=== PATIENT | male | born 1950 | race Caucasian/White ===

== ENCOUNTER 2018-11-24 23:35 | Inpatient (IN) | payer MEDICARE, OTHER ==
[2018-11-25 00:08] LABS: ADD MAN DIFF? NO
[2018-11-25 00:09] LABS: ABNORMAL IP MESSAGE 1; BASOPHIL # 0.1 10^3/ul (0.0-0.1); BASOPHILS % 0.4 % (0.0-2.0); HEMATOCRIT 60.1 % (42.0-52.0); LYMPHOCYTES # 0.9 10^3/ul (0.8-2.9); MEAN CORPUSCULAR HEMOGLOBIN 29.2 pg (29.0-33.0); MEAN CORPUSCULAR VOLUME 97.6 fl (82.0-101.0); MEAN PLATELET VOLUME 12.3 fl (7.4-10.4); MONOCYTE # 1.4 10^3/ul (0.3-0.9); MONOCYTES % 5.9 % (0.0-11.0); NEUTROPHIL # 20.8 10^3/ul (1.6-7.5); NEUTROPHILS % 89.1 % (39.0-77.0); PLATELET COUNT 394 10^3/UL (140-415); POSITIVE DIFF @See below; RED BLOOD COUNT 6.16 10^6/ul (4.70-6.10); RED CELL DISTRIBUTION WIDTH 11.9 % (11.5-14.5)
[2018-11-25 00:09] LABS: WHITE BLOOD COUNT 23.3 10^3/ul (4.8-10.8)
[2018-11-25] MEDS: CEFEPIME 2GM/50 ML (PMX) 50 ML IVPB (00:15)
[2018-11-25] MEDS: SODIUM CHLORIDE 0.9% 1L BAG IV* (00:15)
[2018-11-25] MEDS: SUCCINYLCHOLINE CHLORIDE 100 MG/5 ML SYG IV (00:25)
[2018-11-25 00:30] LABS: INR 1.56; PROTIME 18.8 Sec (11.9-14.9); PT RATIO 1.5
[2018-11-25 00:31] LABS: PARTIAL THROMBOPLASTIN TIME 45.4 Sec (23.0-35.0)
[2018-11-25] MEDS: NORepinephrine 8MG/250 ML (PMX 250 ML IV (00:39)
[2018-11-25] MEDS: VANCOMYCIN 1 GM (PMX) 250 ML IVPB (00:45)
[2018-11-25 01:26] LABS: ANION GAP 25 (5-13); BLOOD UREA NITROGEN 109 mg/dl (7-20); CALCIUM 8.8 mg/dl (8.4-10.2); CARBON DIOXIDE 16 mmol/L (21-31); CHLORIDE 116 mmol/L (97-110); CREATININE 5.44 mg/dl (0.61-1.24); Estimated GFR 11 mL/min (>60); POTASSIUM 5.6 mmol/L (3.5-5.1); SODIUM 157 mmol/L (135-144)
[2018-11-25 01:35] LABS: GLUCOSE 717 mg/dl (70-220)
[2018-11-25 01:46] LABS: ADD UMIC YES; UR ASCORBIC ACID 20 mg/dL (NEGATIVE); UR BILIRUBIN (Dip) NEGATIVE (NEGATIVE); UR BLOOD (Dip) 2+ mg/dL (NEGATIVE); UR CLARITY SLIGHTLY CLOUDY (CLEAR); UR COLOR YELLOW (YELLOW); UR GLUCOSE (Dip) 3+ mg/dL (NEGATIVE); UR KETONES (Dip) NEGATIVE (NEGATIVE); UR LEUKOCYTE ESTERASE (Dip) NEGATIVE Leu/ul (NEGATIVE); UR NITRITE (Dip) NEGATIVE (NEGATIVE); UR RBC 45 /HPF (0-5); UR SPECIFIC GRAVITY (Dip) 1.016 (1.003-1.030); UR TOTAL PROTEIN (Dip) 2+ mg/dl (NEGATIVE); UR UROBILINOGEN (Dip) NEGATIVE (NEGATIVE); UR WBC 2 /HPF (0-5)
[2018-11-25 02:10] LABS: AADO2 Arterial 218.6 mmHg (7.0-24.0); Allen Test ACCEPTAB; Arterial Base Excess -9.8 mmol/L (-3.0-3); Arterial Blood Gas Oxygen Sat 96.7 mmHG (95.0-98.0); Arterial COHb 0 % (0.0-3.0); Arterial Fraction of Oxyhgb 96.3 % (93.0-99.0); Arterial HCO3 15.5 mmol/L (22.0-26.0); Arterial MetHb 0.4 % (0.0-1.5); Arterial pCO2 33.1 mmhg (35-45); MODE VENT - AC; Site Right Radial
[2018-11-25] MEDS ORDERED: ONDANSETRON 4 MG INJ IV (02:30)
[2018-11-25] MEDS: NA POLYST SULFON 15 GM/60 ML BTL PO (02:30)
[2018-11-25] MEDS ORDERED: SOD CHLORIDE 0.9% 1,000 ML IV (02:30)
[2018-11-25] MEDS ORDERED: VANCOMYCIN IV PER PHARMACY XX (02:30)
[2018-11-25] MEDS ORDERED: morphine 2 MG INJ IV (02:30)
[2018-11-25] MEDS ORDERED: PIPER-TAZO 3.375 GM IV (PMX) 100 ML IVPB (02:30)
[2018-11-25] MEDS ORDERED: ACCU-CHEK XX (02:30)
[2018-11-25] MEDS ORDERED: ACETAMINOPHEN 325 MG TAB PO (02:30)
[2018-11-25] MEDS ORDERED: DEXTROSE 50% 50 ML SYRINGE IV ×4 (02:30→03:00)
[2018-11-25] MEDS: ACCU-CHEK XX ×21 (03:00→23:10)
[2018-11-25] MEDS: SOD CHLORIDE 0.9% 1,000 ML IV ×2 (03:14→07:48)
[2018-11-25 04:13] LABS: UR KETONES (Dip) NEGATIVE (NEGATIVE)
[2018-11-25] MEDS: LEVETIRACETAM 1000 MG (PMX) 100 ML IVPB ×2 (04:13→21:55)
[2018-11-25] MEDS: PIPER-TAZO 2.25 GM (PMX) 50 ML IVPB ×3 (04:14→21:55)
[2018-11-25 04:22] LABS: CREATININE,URINE RANDOM 93.65 mg/dl (20-370)
[2018-11-25 04:22] LABS: SODIUM,URINE RANDOM 25 mmol/L (30-90)
[2018-11-25] MEDS ORDERED: VANCOMYCIN HCL 1.75 GM in SOD CHLORIDE 0.9% 500 ML IVPB (04:30)
[2018-11-25 05:17] LABS: HEMATOCRIT 46.1 % (42.0-52.0); HEMOGLOBIN 13.9 g/dl (14.0-18.0); MEAN CORPUSCULAR HEMOGLOBIN 30.1 pg (29.0-33.0); MEAN CORPUSCULAR HGB CONC 30.2 g/dl (32.0-37.0); MEAN CORPUSCULAR VOLUME 99.8 fl (82.0-101.0); MEAN PLATELET VOLUME 12.5 fl (7.4-10.4); PLATELET COUNT 255 10^3/UL (140-415); POSITIVE DIFF @See below; RED BLOOD COUNT 4.62 10^6/ul (4.70-6.10); RED CELL DISTRIBUTION WIDTH 12.1 % (11.5-14.5)
[2018-11-25 05:17] LABS: WHITE BLOOD COUNT 20.3 10^3/ul (4.8-10.8)
[2018-11-25 05:25] LABS: ADD MAN DIFF? YES
[2018-11-25 05:40] LABS: ANION GAP 11 (5-13); BLOOD UREA NITROGEN 102 mg/dl (7-20); CALCIUM 7.6 mg/dl (8.4-10.2); CARBON DIOXIDE 18 mmol/L (21-31); CHLORIDE 125 mmol/L (97-110); CREATININE 4.43 mg/dl (0.61-1.24); Estimated GFR 13 mL/min (>60); POTASSIUM 5.2 mmol/L (3.5-5.1); SODIUM 154 mmol/L (135-144)
[2018-11-25 05:43] LABS: LACTIC ACID 3.8 mmol/L (0.5-2.0)
[2018-11-25 05:48] LABS: TROPONIN-I 0.476 ng/ml (0.000-0.120)
[2018-11-25] MEDS: VANCOMYCIN 750 MG (PMX) 250 ML IVPB (05:50)
[2018-11-25] MEDS: PANTOPRAZOLE 40 MG INJ IV (05:52)
[2018-11-25] MEDS: SODIUM POLYSTYRENE 15 GM KIT (POWDER + SORBITOL) PO (05:52)
[2018-11-25 06:05] LABS: GLUCOSE 654 mg/dl (70-220)
[2018-11-25] MEDS: INSULIN HUMAN REGULAR 100 UNIT in SOD CHLORIDE 0.9% 99 ML IV ×3 (06:09→18:10)
[2018-11-25 08:02] LABS: BAND NEUTROPHILS #M 5.4 10^3/ul (0.0-0.6); BAND NEUTROPHILS % (M) 27 % (0-4); LYMPHOCYTES #M 2.4 10^3/ul (0.8-2.9); LYMPHOCYTES % (M) 12 % (15-51); METAMYELOCYTES #M 0.4 10^3/ul (0.0-0.0); METAMYELOCYTES %M 2 % (0-0); MONOCYTE #M 1.6 10^3/ul (0.3-0.9); MONOCYTES % (M) 8 % (0-11); MYELOCYTES #M 0.2 10^3/ul (0.0-0.0); MYELOCYTES % (M) 1 % (0-0); PLATELET ESTIMATE NORMAL; POIKILOCYTOSIS 1+ (0-0); SEG NEUT #M 11.2 10^3/ul (1.6-7.5); SEGMENTED NEUTROPHILS (M) % 50 % (39-77); SMUDGE%M 11 % (0-0)
[2018-11-25] MEDS: SOD CHLORIDE 0.45% 1,000 ML IV (10:25)
[2018-11-25 10:57] LABS: ANION GAP 16 (5-13); BLOOD UREA NITROGEN 97 mg/dl (7-20); CARBON DIOXIDE 17 mmol/L (21-31); CHLORIDE 130 mmol/L (97-110); CREATININE 4.05 mg/dl (0.61-1.24); Estimated GFR 15 mL/min (>60); MAGNESIUM 2.9 mg/dl (1.7-2.5); POTASSIUM 4.1 mmol/L (3.5-5.1)
[2018-11-25 11:00] LABS: SODIUM 163 mmol/L (135-144)
[2018-11-25 11:01] LABS: GLUCOSE 542 mg/dl (70-220)
[2018-11-25 11:03] LABS: CREATINE KINASE 2227 IU/L (23-200)
[2018-11-25 11:09] LABS: CK INDEX 0.2
[2018-11-25 11:21] LABS: CK-MB 4.77 ng/ml (0.0-2.4)
[2018-11-25 11:29] LABS: LACTIC ACID 4.6 mmol/L (0.5-2.0)
[2018-11-25 12:05] LABS: HEMOGLOBIN A1C 9.8 % (0-5.9)
[2018-11-25] MEDS: HEPARIN 5,000 UNIT/1 ML VIAL SC (13:08)
[2018-11-25] MEDS: SODIUM BICARBONATE (IV ADD) 50 MEQ in SOD CHLORIDE 0.45% 1,000 ML IV (15:47)
[2018-11-25] MEDS: BALSAM PERU/CASTOR OIL 60 GM TUBE TOP ×2 (15:50→21:10)
[2018-11-25 16:49] LABS: CREATINE KINASE 2107 IU/L (23-200)
[2018-11-25 16:50] LABS: CK INDEX 0.2
[2018-11-25 16:51] LABS: CK-MB 4.93 ng/ml (0.0-2.4)
[2018-11-25] MEDS: SOD CHLORIDE 0.9% 250 ML IV* (18:01)
[2018-11-25 20:49] LABS: TYPE AND SCREEN 1 1
[2018-11-25 22:51] LABS: CREATINE KINASE 1390 IU/L (23-200)
[2018-11-25 23:02] LABS: CK INDEX 0.3
[2018-11-25 23:05] LABS: TROPONIN-I 0.955 ng/ml (0.000-0.120)
[2018-11-26] MEDS: ACCU-CHEK XX ×24 (01:06→22:58)
[2018-11-26] MEDS: SODIUM BICARBONATE (IV ADD) 50 MEQ in SOD CHLORIDE 0.45% 1,000 ML IV ×2 (02:20→14:44)
[2018-11-26] MEDS: morphine SULFATE/PF (2 MG/2 ML) SYG IV ×3 (02:59→22:57)
[2018-11-26] MEDS: PIPER-TAZO 2.25 GM (PMX) 50 ML IVPB ×3 (05:02→20:38)
[2018-11-26] MEDS: PANTOPRAZOLE 40 MG INJ IV (05:02)
[2018-11-26 05:29] LABS: HEMOGLOBIN 11.9 g/dl (14.0-18.0); MEAN CORPUSCULAR HEMOGLOBIN 29.8 pg (29.0-33.0); MEAN CORPUSCULAR HGB CONC 30.5 g/dl (32.0-37.0); MEAN CORPUSCULAR VOLUME 97.5 fl (82.0-101.0); MEAN PLATELET VOLUME 12.6 fl (7.4-10.4); PLATELET COUNT 169 10^3/UL (140-415); POSITIVE DIFF @See below
[2018-11-26 05:29] LABS: WHITE BLOOD COUNT 15.4 10^3/ul (4.8-10.8)
[2018-11-26 05:33] LABS: ADD MAN DIFF? YES
[2018-11-26 05:47] LABS: LACTIC ACID 1.7 mmol/L (0.5-2.0)
[2018-11-26 05:59] LABS: INR 1.28; PROTIME 16.1 Sec (11.9-14.9); PT RATIO 1.3
[2018-11-26 06:00] LABS: PARTIAL THROMBOPLASTIN TIME 36.5 Sec (23.0-35.0); THROMBIN TIME 18.3 SEC (13.8-19.1)
[2018-11-26 06:02] LABS: PHOSPHORUS 3.1 mg/dl (2.5-4.9)
[2018-11-26 06:02] LABS: MAGNESIUM 2.3 mg/dl (1.7-2.5)
[2018-11-26 06:31] LABS: PLATELET COUNT 169 10^3/UL (140-415)
[2018-11-26 07:22] LABS: ALANINE AMINOTRANSFERASE 524 IU/L (13-69); ALBUMIN 3.2 g/dl (3.3-4.9); ALBUMIN/GLOBULIN RATIO 0.96; ALKALINE PHOSPHATASE 96 IU/L (42-121); ANION GAP 7 (5-13); ASPARTATE AMINO TRANSFERASE 600 IU/L (15-46); BILIRUBIN,INDIRECT 0.2 mg/dl (0-1.1); BILIRUBIN,TOTAL 0.2 mg/dl (0.2-1.3); BLOOD UREA NITROGEN 71 mg/dl (7-20); CALCIUM 8.2 mg/dl (8.4-10.2); CARBON DIOXIDE 23 mmol/L (21-31); CHLORIDE 127 mmol/L (97-110); CREATININE 2.63 mg/dl (0.61-1.24); Estimated GFR 24 mL/min (>60); GLUCOSE 164 mg/dl (70-220); POTASSIUM 3.8 mmol/L (3.5-5.1); SODIUM 157 mmol/L (135-144); TOTAL PROTEIN 6.5 g/dl (6.1-8.1)
[2018-11-26 07:44] LABS: BAND NEUTROPHILS #M 2.9 10^3/ul (0.0-0.6); BAND NEUTROPHILS % (M) 19 % (0-4); LYMPHOCYTES #M 0.9 10^3/ul (0.8-2.9); LYMPHOCYTES % (M) 6 % (15-51); MONOCYTE #M 0.4 10^3/ul (0.3-0.9); MONOCYTES % (M) 3 % (0-11); OVALOCYTES 1+ (0-0); PLATELET ESTIMATE NORMAL; POLYCHROMASIA 1+ (0-0); SEG NEUT #M 11.5 10^3/ul (1.6-7.5); SEGMENTED NEUTROPHILS (M) % 72 % (39-77); SMUDGE%M 1 % (0-0)
[2018-11-26] MEDS: BALSAM PERU/CASTOR OIL 60 GM TUBE TOP ×2 (09:23→20:38)
[2018-11-26] MEDS: LEVETIRACETAM 1000 MG (PMX) 100 ML IVPB ×2 (09:26→20:37)
[2018-11-27] MEDS: ACCU-CHEK XX ×24 (00:18→23:00)
[2018-11-27] MEDS: SODIUM BICARBONATE (IV ADD) 50 MEQ in SOD CHLORIDE 0.45% 1,000 ML IV ×2 (00:52→14:38)
[2018-11-27 02:33] LABS: ADD MAN DIFF? NO
[2018-11-27 02:35] LABS: WHITE BLOOD COUNT 10.6 10^3/ul (4.8-10.8)
[2018-11-27 02:35] LABS: BASOPHILS % 0.1 % (0.0-2.0); EOSINOPHILS # 0.1 10^3/ul (0.0-0.5); EOSINOPHILS % 0.7 % (0.0-7.0); HEMATOCRIT 36.6 % (42.0-52.0); HEMOGLOBIN 11.4 g/dl (14.0-18.0); LYMPHOCYTES % 9.6 % (15.0-51.0); MEAN CORPUSCULAR HEMOGLOBIN 29.6 pg (29.0-33.0); MEAN CORPUSCULAR HGB CONC 31.1 g/dl (32.0-37.0); MEAN CORPUSCULAR VOLUME 95.1 fl (82.0-101.0); MEAN PLATELET VOLUME 11.5 fl (7.4-10.4); MONOCYTE # 0.6 10^3/ul (0.3-0.9); MONOCYTES % 5.2 % (0.0-11.0); NEUTROPHIL # 8.9 10^3/ul (1.6-7.5); NEUTROPHILS % 83.8 % (39.0-77.0); PLATELET COUNT 137 10^3/UL (140-415); RED BLOOD COUNT 3.85 10^6/ul (4.70-6.10); RED CELL DISTRIBUTION WIDTH 11.9 % (11.5-14.5)
[2018-11-27 02:52] LABS: ANION GAP 5 (5-13); BLOOD UREA NITROGEN 46 mg/dl (7-20); CALCIUM 7.9 mg/dl (8.4-10.2); CARBON DIOXIDE 28 mmol/L (21-31); CHLORIDE 120 mmol/L (97-110); CREATININE 1.99 mg/dl (0.61-1.24); Estimated GFR 34 mL/min (>60); GLUCOSE 154 mg/dl (70-220); MAGNESIUM 2.2 mg/dl (1.7-2.5); PHOSPHORUS 2.6 mg/dl (2.5-4.9); POTASSIUM 3.2 mmol/L (3.5-5.1); SODIUM 153 mmol/L (135-144)
[2018-11-27] MEDS: POTASSIUM CHLORIDE 50 ML IVPB ×2 (03:56→05:10)
[2018-11-27] MEDS: morphine SULFATE/PF (2 MG/2 ML) SYG IV ×2 (03:56→11:32)
[2018-11-27] MEDS: PANTOPRAZOLE 40 MG INJ IV (05:10)
[2018-11-27] MEDS: PIPER-TAZO 2.25 GM (PMX) 50 ML IVPB ×3 (05:11→20:38)
[2018-11-27 05:59] LABS: VANCOMYCIN,TROUGH 12.1 ug/ml (10.0-20.0)
[2018-11-27] MEDS: BALSAM PERU/CASTOR OIL 60 GM TUBE TOP ×2 (07:53→20:39)
[2018-11-27] MEDS: LEVETIRACETAM 1000 MG (PMX) 100 ML IVPB ×2 (09:07→20:34)
[2018-11-27] MEDS ORDERED: ACYCLOVIR 500 MG in SOD CHLORIDE 0.9% 100 ML IVPB (19:00)
[2018-11-27] MEDS: INSULIN HUMAN REGULAR 100 UNIT in SOD CHLORIDE 0.9% 99 ML IV (20:38)
[2018-11-27] MEDS: POTASSIUM CHLORIDE 10 MEQ in SOD CHLORIDE 0.45% 1,000 ML IV (21:00)
[2018-11-28] MEDS: ACCU-CHEK XX ×22 (01:00→22:14)
[2018-11-28] MEDS: INSULIN HUMAN REGULAR 100 UNIT in SOD CHLORIDE 0.9% 99 ML IV (02:00)
[2018-11-28 05:14] LABS: ADD MAN DIFF? NO
[2018-11-28 05:24] LABS: WHITE BLOOD COUNT 7.3 10^3/ul (4.8-10.8)
[2018-11-28 05:24] LABS: BASOPHILS % 0.3 % (0.0-2.0); EOSINOPHILS # 0.2 10^3/ul (0.0-0.5); EOSINOPHILS % 2.3 % (0.0-7.0); HEMATOCRIT 36.5 % (42.0-52.0); HEMOGLOBIN 11.4 g/dl (14.0-18.0); LYMPHOCYTES # 1.3 10^3/ul (0.8-2.9); LYMPHOCYTES % 18.1 % (15.0-51.0); MEAN CORPUSCULAR HEMOGLOBIN 29.8 pg (29.0-33.0); MEAN CORPUSCULAR HGB CONC 31.2 g/dl (32.0-37.0); MEAN CORPUSCULAR VOLUME 95.5 fl (82.0-101.0); MEAN PLATELET VOLUME 12.2 fl (7.4-10.4); MONOCYTE # 0.5 10^3/ul (0.3-0.9); MONOCYTES % 6.7 % (0.0-11.0); NEUTROPHIL # 5.3 10^3/ul (1.6-7.5); NEUTROPHILS % 72.1 % (39.0-77.0); PLATELET COUNT 147 10^3/UL (140-415); RED BLOOD COUNT 3.82 10^6/ul (4.70-6.10); RED CELL DISTRIBUTION WIDTH 11.9 % (11.5-14.5)
[2018-11-28 05:40] LABS: MAGNESIUM 2.2 mg/dl (1.7-2.5)
[2018-11-28 05:40] LABS: PHOSPHORUS 2.6 mg/dl (2.5-4.9)
[2018-11-28 05:50] LABS: ANION GAP 6 (5-13); BLOOD UREA NITROGEN 32 mg/dl (7-20); CALCIUM 8.1 mg/dl (8.4-10.2); CARBON DIOXIDE 28 mmol/L (21-31); CHLORIDE 118 mmol/L (97-110); CREATININE 1.63 mg/dl (0.61-1.24); Estimated GFR 43 mL/min (>60); GLUCOSE 156 mg/dl (70-220); POTASSIUM 3.4 mmol/L (3.5-5.1); SODIUM 152 mmol/L (135-144)
[2018-11-28] MEDS: PIPER-TAZO 2.25 GM (PMX) 50 ML IVPB ×3 (05:50→20:40)
[2018-11-28] MEDS: PANTOPRAZOLE 40 MG INJ IV (05:50)
[2018-11-28] MEDS: BALSAM PERU/CASTOR OIL 60 GM TUBE TOP ×2 (08:13→20:21)
[2018-11-28] MEDS: LEVETIRACETAM 1000 MG (PMX) 100 ML IVPB ×2 (08:31→20:17)
[2018-11-28] MEDS: POTASSIUM CHLORIDE 10 MEQ in SOD CHLORIDE 0.45% 1,000 ML IV (13:17)
[2018-11-28] MEDS: morphine SULFATE/PF (2 MG/2 ML) SYG IV ×2 (14:33→20:39)
[2018-11-29] MEDS: ACCU-CHEK XX ×13 (01:00→23:00)
[2018-11-29] MEDS: POTASSIUM CHLORIDE 10 MEQ in SOD CHLORIDE 0.45% 1,000 ML IV ×3 (03:56→17:48)
[2018-11-29] MEDS: INSULIN HUMAN REGULAR 100 UNIT in SOD CHLORIDE 0.9% 99 ML IV (03:58)
[2018-11-29 04:56] LABS: ADD MAN DIFF? NO
[2018-11-29] MEDS: PANTOPRAZOLE 40 MG INJ IV (05:07)
[2018-11-29] MEDS: PIPER-TAZO 2.25 GM (PMX) 50 ML IVPB ×2 (05:07→13:32)
[2018-11-29 05:09] LABS: BASOPHILS % 0.1 % (0.0-2.0); EOSINOPHILS # 0.3 10^3/ul (0.0-0.5); EOSINOPHILS % 4.2 % (0.0-7.0); HEMOGLOBIN 10.7 g/dl (14.0-18.0); LYMPHOCYTES # 1.2 10^3/ul (0.8-2.9); LYMPHOCYTES % 17.3 % (15.0-51.0); MEAN CORPUSCULAR HEMOGLOBIN 29.7 pg (29.0-33.0); MEAN CORPUSCULAR HGB CONC 31.5 g/dl (32.0-37.0); MEAN CORPUSCULAR VOLUME 94.4 fl (82.0-101.0); MEAN PLATELET VOLUME 12.2 fl (7.4-10.4); MONOCYTE # 0.6 10^3/ul (0.3-0.9); MONOCYTES % 7.9 % (0.0-11.0); NEUTROPHIL # 4.9 10^3/ul (1.6-7.5); NEUTROPHILS % 70.1 % (39.0-77.0); PLATELET COUNT 138 10^3/UL (140-415); RED CELL DISTRIBUTION WIDTH 11.8 % (11.5-14.5)
[2018-11-29 05:33] LABS: ANION GAP 4 (5-13); BLOOD UREA NITROGEN 25 mg/dl (7-20); CALCIUM 8.2 mg/dl (8.4-10.2); CARBON DIOXIDE 27 mmol/L (21-31); CHLORIDE 117 mmol/L (97-110); CREATININE 1.49 mg/dl (0.61-1.24); Estimated GFR 47 mL/min (>60); GLUCOSE 138 mg/dl (70-220); POTASSIUM 3.3 mmol/L (3.5-5.1); SODIUM 148 mmol/L (135-144)
[2018-11-29 05:36] LABS: PHOSPHORUS 2.9 mg/dl (2.5-4.9)
[2018-11-29] MEDS: BALSAM PERU/CASTOR OIL 60 GM TUBE TOP ×2 (09:17→20:54)
[2018-11-29] MEDS: LEVETIRACETAM 1000 MG (PMX) 100 ML IVPB ×2 (11:24→20:53)
[2018-11-29] MEDS: POTASSIUM CHLORIDE 50 ML IVPB (11:36)
[2018-11-29] MEDS: PIPER-TAZO 3.375 GM IV (PMX) 100 ML IVPB (22:13)
[2018-11-30] MEDS: ACCU-CHEK XX ×7 (01:05→12:53)
[2018-11-30 04:53] LABS: AADO2 Arterial 85.8 mmHg (7.0-24.0); Allen Test ACCEPTAB; Arterial Base Excess 0.7 mmol/L (-3.0-3); Arterial Blood Gas Oxygen Sat 96.6 mmHG (95.0-98.0); Arterial COHb 0.7 % (0.0-3.0); Arterial Fraction of Oxyhgb 95.6 % (93.0-99.0); Arterial HCO3 24.1 mmol/L (22.0-26.0); Arterial MetHb 0.3 % (0.0-1.5); MODE VENT - AC; Site Left Radial
[2018-11-30] MEDS: INSULIN HUMAN REGULAR 100 UNIT in SOD CHLORIDE 0.9% 99 ML IV (05:12)
[2018-11-30] MEDS: PANTOPRAZOLE 40 MG INJ IV (05:19)
[2018-11-30] MEDS: PIPER-TAZO 3.375 GM IV (PMX) 100 ML IVPB ×3 (05:19→20:20)
[2018-11-30 06:05] LABS: ADD MAN DIFF? NO
[2018-11-30] MEDS: POTASSIUM CHLORIDE 10 MEQ in SOD CHLORIDE 0.45% 1,000 ML IV (06:09)
[2018-11-30 06:19] LABS: BASOPHILS % 0.1 % (0.0-2.0); EOSINOPHILS # 0.3 10^3/ul (0.0-0.5); HEMATOCRIT 34.5 % (42.0-52.0); LYMPHOCYTES # 1.3 10^3/ul (0.8-2.9); LYMPHOCYTES % 17.5 % (15.0-51.0); MEAN CORPUSCULAR HEMOGLOBIN 29.4 pg (29.0-33.0); MEAN CORPUSCULAR HGB CONC 31.9 g/dl (32.0-37.0); MEAN CORPUSCULAR VOLUME 92.2 fl (82.0-101.0); MEAN PLATELET VOLUME 11.5 fl (7.4-10.4); MONOCYTE # 0.6 10^3/ul (0.3-0.9); MONOCYTES % 8.6 % (0.0-11.0); NEUTROPHIL # 5.2 10^3/ul (1.6-7.5); NEUTROPHILS % 69.3 % (39.0-77.0); PLATELET COUNT 159 10^3/UL (140-415); RED BLOOD COUNT 3.74 10^6/ul (4.70-6.10); RED CELL DISTRIBUTION WIDTH 11.7 % (11.5-14.5)
[2018-11-30 06:19] LABS: WHITE BLOOD COUNT 7.5 10^3/ul (4.8-10.8)
[2018-11-30 06:34] LABS: ANION GAP 7 (5-13); BLOOD UREA NITROGEN 20 mg/dl (7-20); CALCIUM 8.2 mg/dl (8.4-10.2); CARBON DIOXIDE 26 mmol/L (21-31); CHLORIDE 112 mmol/L (97-110); CREATININE 1.37 mg/dl (0.61-1.24); Estimated GFR 52 mL/min (>60); GLUCOSE 123 mg/dl (70-220); POTASSIUM 3.4 mmol/L (3.5-5.1); SODIUM 145 mmol/L (135-144)
[2018-11-30 06:40] LABS: LACTIC ACID 1.2 mmol/L (0.5-2.0)
[2018-11-30 07:09] LABS: PHOSPHORUS 2.9 mg/dl (2.5-4.9)
[2018-11-30 07:09] LABS: MAGNESIUM 1.9 mg/dl (1.7-2.5)
[2018-11-30] MEDS: LEVETIRACETAM 1000 MG (PMX) 100 ML IVPB ×2 (08:54→20:17)
[2018-11-30] MEDS: BALSAM PERU/CASTOR OIL 60 GM TUBE TOP ×2 (08:54→20:20)
[2018-11-30] MEDS: POTASSIUM CHLORIDE 50 ML IVPB ×2 (09:31→11:12)
[2018-11-30] MEDS ORDERED: GLUCOSE GEL 15 GRAM TUBE PO ×2 (10:30)
[2018-11-30] MEDS ORDERED: DEXTROSE 50% 50 ML SYRINGE IV ×2 (10:30)
[2018-11-30] MEDS ORDERED: GLUCAGON 1 MG INJ IM (10:30)
[2018-11-30] MEDS ORDERED: GLUCOSE GEL 15 GRAM TUBE BUCCAL (10:30)
[2018-11-30] MEDS: INSULIN ASPART [NOVOLOG] 3 ML PEN SC ×3 (11:30→20:18)
[2018-11-30] MEDS: INSULIN GLARGINE [LANTus] (100 UNITS/ML) SYG SC (11:51)
[2018-12-01] MEDS: INSULIN ASPART [NOVOLOG] 3 ML PEN SC ×6 (01:03→20:35)
[2018-12-01] MEDS: PIPER-TAZO 3.375 GM IV (PMX) 100 ML IVPB ×3 (05:17→20:41)
[2018-12-01] MEDS: PANTOPRAZOLE 40 MG INJ IV (05:17)
[2018-12-01 05:44] LABS: MAGNESIUM 1.9 mg/dl (1.7-2.5)
[2018-12-01 05:45] LABS: ANION GAP 7 (5-13); BLOOD UREA NITROGEN 17 mg/dl (7-20); CALCIUM 8.6 mg/dl (8.4-10.2); CARBON DIOXIDE 25 mmol/L (21-31); CHLORIDE 112 mmol/L (97-110); Estimated GFR 47 mL/min (>60); GLUCOSE 138 mg/dl (70-220); POTASSIUM 3.7 mmol/L (3.5-5.1); SODIUM 144 mmol/L (135-144)
[2018-12-01] MEDS: LEVETIRACETAM 1000 MG (PMX) 100 ML IVPB ×2 (08:35→20:41)
[2018-12-01] MEDS: INSULIN GLARGINE [LANTus] (100 UNITS/ML) SYG SC (08:37)
[2018-12-01] MEDS: BALSAM PERU/CASTOR OIL 60 GM TUBE TOP ×2 (08:38→20:41)
[2018-12-01] MEDS: PROPOFOL 100 ML IV (21:48)
[2018-12-02] MEDS: INSULIN ASPART [NOVOLOG] 3 ML PEN SC ×6 (01:00→20:23)
[2018-12-02 01:54] LABS: ANION GAP 6 (5-13); BLOOD UREA NITROGEN 16 mg/dl (7-20); CALCIUM 8.5 mg/dl (8.4-10.2); CARBON DIOXIDE 26 mmol/L (21-31); CHLORIDE 111 mmol/L (97-110); CREATININE 1.44 mg/dl (0.61-1.24); Estimated GFR 49 mL/min (>60); GLUCOSE 131 mg/dl (70-220); MAGNESIUM 1.9 mg/dl (1.7-2.5); POTASSIUM 3.5 mmol/L (3.5-5.1); SODIUM 143 mmol/L (135-144)
[2018-12-02] MEDS: PIPER-TAZO 3.375 GM IV (PMX) 100 ML IVPB ×3 (05:40→20:23)
[2018-12-02] MEDS: PANTOPRAZOLE 40 MG INJ IV (05:40)
[2018-12-02] MEDS: PROPOFOL 100 ML IV (07:19)
[2018-12-02] MEDS: MAGNESIUM SULFATE 1 GM/D5W 100 ML IVPB (07:56)
[2018-12-02] MEDS: LEVETIRACETAM 1000 MG (PMX) 100 ML IVPB ×2 (07:56→20:23)
[2018-12-02] MEDS: POTASSIUM CHLORIDE 20 MEQ POWDER FOR ORAL SOLN GTB (07:56)
[2018-12-02] MEDS: BALSAM PERU/CASTOR OIL 60 GM TUBE TOP ×2 (08:00→20:23)
[2018-12-02] MEDS ORDERED: POTASSIUM CHLORIDE (SR) 20 MEQ TAB PO (08:00)
[2018-12-02] MEDS: INSULIN GLARGINE [LANTus] (100 UNITS/ML) SYG SC (08:06)
[2018-12-03] MEDS: PROPOFOL 100 ML IV ×2 (00:46→09:00)
[2018-12-03] MEDS: INSULIN ASPART [NOVOLOG] 3 ML PEN SC ×3 (00:46→08:16)
[2018-12-03] MEDS: PIPER-TAZO 3.375 GM IV (PMX) 100 ML IVPB (05:09)
[2018-12-03] MEDS: PANTOPRAZOLE 40 MG INJ IV (05:09)
[2018-12-03] MEDS: LEVETIRACETAM 1000 MG (PMX) 100 ML IVPB (08:12)
[2018-12-03] MEDS: POTASSIUM CHLORIDE 20 MEQ POWDER FOR ORAL SOLN GTB (08:12)
[2018-12-03] MEDS: INSULIN GLARGINE [LANTus] (100 UNITS/ML) SYG SC (08:15)
[2018-12-03] MEDS: BALSAM PERU/CASTOR OIL 60 GM TUBE TOP (08:46)
[2018-12-03] MEDS: morphine (DRIP) 100 MG/100 ML 100 ML IV (11:52)
== END 2018-12-03 21:20 | disposition hospice, home (50) | DRG 870 ==
LOC: E/R 23:35 → ICU 11-25 01:47
PROVIDERS: Legal Medicine
PROC: 5A1955Z Respiratory Ventilation, Greater than 96 Consecutive Hours (ICD-10-PCS; principal; 2018-11-25)
PROC: 0BH17EZ Insertion of Endotracheal Airway into Trachea, Via Natural or Artificial Opening (ICD-10-PCS; 2018-11-25)
PROC: 02HV33Z Insertion of Infusion Device into Superior Vena Cava, Percutaneous Approach (ICD-10-PCS; 2018-11-25)
PROC: 30233K1 Transfusion of Nonautologous Frozen Plasma into Peripheral Vein, Percutaneous Approach (ICD-10-PCS; 2018-11-25)
PROC: 0BP1XDZ Removal of Intraluminal Device from Trachea, External Approach (ICD-10-PCS; 2018-12-03)
DX: A41.9 Sepsis, unspecified organism (principal); R65.21 Severe sepsis with septic shock; J96.00 Acute respiratory failure, unspecified whether with hypoxia or hypercapnia; J69.0 Pneumonitis due to inhalation of food and vomit; N17.0 Acute kidney failure with tubular necrosis; E11.10 Type 2 diabetes mellitus with ketoacidosis without coma; I61.8 Other nontraumatic intracerebral hemorrhage; E87.2 Acidosis; E87.0 Hyperosmolality and hypernatremia; G93.49 Other encephalopathy; N18.9 Chronic kidney disease, unspecified; I12.9 Hypertensive chronic kidney disease with stage 1 through stage 4 chronic kidney disease, or unspecified chronic kidney disease; E11.22 Type 2 diabetes mellitus with diabetic chronic kidney disease; E87.5 Hyperkalemia; E86.0 Dehydration; G40.909 Epilepsy, unspecified, not intractable, without status epilepticus; I48.2 Chronic atrial fibrillation; I69.391 Dysphagia following cerebral infarction; R13.10 Dysphagia, unspecified; Z66 Do not resuscitate; Z93.1 Gastrostomy status
CPT/HCPCS: 31500; 36415; 36430; 36600; 70450; 70544; 70551; 71045; 76775; 80048; 80053; 80202; 81001; 81003; 81005; 82550; 82553; 82803; 82962; 83036; 83605; 83735; 84100; 84155; 84300; 84484; 85025; 85049; 85610; 85670; 85730; 86850; 86900; 86901; 87040; 87081; 87086; 93005; 93306; 94002; 94003; 94770; 96361; 96365; 96375; 99291-25